=== PATIENT | female | born 1970 | race Asian ===

== ENCOUNTER 2024-03-14 08:16 | Outpatient (REF) | payer OTHER, SELFPAY ==
--- NOTE | ~2024-03-14 | US_ITS ---
EXAMINATION: US PELVIS CLINICAL INFORMATION: Intermittent lower abdominal pain Postmenopausal COMPARISON: None available. TECHNIQUE: Ultrasound of the pelvis is performed using both transabdominal and transvaginal transducers along with Doppler. Transvaginal imaging is performed due to inadequate visualization transabdominally. FINDINGS: Uterus: The uterus is retroverted, anteflexed and measures 5.1 x 2.0 x 4.0 cm. No focal fibroid The endometrial thickness is 0.3 cm. The uterus is smooth in contour and has normal myometrial echogenicity. Adnexa: Both ovaries are visualized. There is normal color flow to the adnexa. There is no ovarian torsion. There is no pelvic ascites or fluid collection. Right ovary measures 1.0 x 1.2 x 1.0 cm. The right ovary is normal in appearance. Left ovary measures 1.3 x 1.6 x 1.3 cm. The left ovary is normal in appearance. US/US pelvic and transvaginal IMPRESSION: Normal pelvic ultrasound. If there is continued clinical concern, CT scan of the abdomen and pelvis could be obtained.
== END 2024-03-14 08:17 | disposition home or self-care (01) ==
LOC: HO.UMASIMG 08:16
PROVIDERS: Visit Provider Family Medicine
DX: R53.83 Other fatigue (principal); R10.9 Unspecified abdominal pain
CPT/HCPCS: 76830; 76856